=== PATIENT | male | born 1960 | race Caucasian/White ===

== ENCOUNTER 2016-10-26 19:49 | Emergency (ER) | payer MEDICAID ==
[~2016-10-26] VITALS: Ht 167.6 cm; Wt 73.9 kg
[2016-10-26 19:54] VITALS: BP 123/95; PULSE 106; RESP 20; TEMP 98.5; O2SAT 95
[2016-10-26] MEDS ORDERED: KETOROLAC TROMETHAMINE 60 MG/2 ML VIAL IM ONE (20:15)
[2016-10-27 00:18] VITALS: BP 113/67; PULSE 101; RESP 23; TEMP 97.5; O2SAT 95
== END 2016-10-27 00:18 | disposition home or self-care (01) ==
LOC: SED 19:49
DX: S20.221A Contusion of right back wall of thorax, initial encounter (principal); F10.129 Alcohol abuse with intoxication, unspecified; R03.0 Elevated blood-pressure reading, without diagnosis of hypertension; Z86.73 Personal history of transient ischemic attack (TIA), and cerebral infarction without residual deficits; X58.XXXA Exposure to other specified factors, initial encounter; Y93.89 Activity, other specified; Y92.89 Other specified places as the place of occurrence of the external cause; Y99.8 Other external cause status
CPT/HCPCS: 36415; 71010; 96372; 99285; G0482; J1885